=== PATIENT | female | born 1990 | race African-American/Black ===

== ENCOUNTER 2018-11-12 17:18 | Emergency (ER) | payer OTHER ==
[~2018-11-12] VITALS: Ht 154.9 cm; Wt 42.6 kg
[2018-11-12 17:22] VITALS: BP 118/73
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
--- NOTE | 2018-11-12 17:50 | NUR ---
Patient discharged to home in stable condition. Written and verbal after care instructions given. Patient verbalizes understanding of instruction.
== END 2018-11-12 17:50 | disposition home or self-care (01) ==
LOC: ER 17:20
DX: S16.1XXA Strain of muscle, fascia and tendon at neck level, initial encounter (principal); F07.81 Postconcussional syndrome; V49.59XA Passenger injured in collision with other motor vehicles in traffic accident, initial encounter; Y93.89 Activity, other specified; Y92.488 Other paved roadways as the place of occurrence of the external cause; Y99.8 Other external cause status